=== PATIENT | male | born 1945 | race Caucasian/White ===

== ENCOUNTER 2018-08-11 10:30 | Outpatient (CLI) | payer MEDICARE ==
--- NOTE | 2018-08-11 13:18 | MRI ---
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 Gallstone, S74.2, K80.2. COMPARISON: MRI from 2016. FINDINGS: Multiplanar and multisequence MRI of the abdomen performed prior to and after the intravenous adminis tration of contrast. 3D rendering provided. Background marrow signal of the spine is normal. Multifocal cholelithiasis is present. No evidence of cholecystitis. No intrahepatic or extrahepatic b iliary dilatation. There is mild hepatic steatosis with hepatic fat fraction of 13.4% and hepatic fat percent is 13.8%. The spleen is unremarkable. The adrenal gland are unremarkable. No abnormal enhancing hepatic mass. Portal vein is patent. Hepatic vein are patent. The aortic contour is normal. No aneurysmal dilatation. Right anterior pole renal cyst is present. 1 cm T2 hyperintense nonenhancing mass in the uncinate process of the pancreas is completely unchange d. No connection to the main pancreatic duct. Incidental note is also made of a 4 mm T2 hyperintense focus of the ventral aspect of the pancreatic tail, also unchanged. Prior left nephrectomy. NO abnormal mass in the left nephrectomy bed. IMPRESSION: 1. 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 Per the ACR white paper, a [facility] MRI pancreatic protocol in one year is recommended. Imaging for a total of five years is recommen ded per the ACR criteria. 2. Left nephrectomy changes without abnormal mass in the nephrectomy bed. 3. Mild hepatic steatosis. 4. Right renal cyst. 5. Cholelithiasis without sequela of cystic duct obstruction. POS: [facility]
== END 2018-08-11 10:31 | disposition home or self-care (01) ==
LOC: MRI 10:30
PROVIDERS: ATTEND Internal Medicine Gastroenterology
DX: R13.12 Dysphagia, oropharyngeal phase (principal); D13.6 Benign neoplasm of pancreas; R07.9 Chest pain, unspecified; K21.9 Gastro-esophageal reflux disease without esophagitis; K80.20 Calculus of gallbladder without cholecystitis without obstruction; N28.1 Cyst of kidney, acquired; K76.0 Fatty (change of) liver, not elsewhere classified; Z90.5 Acquired absence of kidney
CPT/HCPCS: 74183; 82565

== ENCOUNTER 2019-09-16 19:16 | Inpatient (IN) | payer MEDICARE ==
[2019-09-16 19:41] LABS: #Basophils 0.1 thou/uL (0.0-0.2); #Eosinphils 0.3 thou/uL (0.0-0.7); #Lymphocytes 2.2 thou/uL (1.20-3.40); #Monocytes 0.7 thou/uL (0.11-0.59); #Neutrophils 5.6 thou/uL (1.40-6.50); %Basophils 0.7 % (0.0-1.0); %Eosinophils 3.6 % (0.0-10.0); %Lymphocytes 25.2 % (21.0-51.0); %Monocytes 7.6 % (0.0-10.0); Hemoglobin 16.1 g/dL (14.0-18.0); Mean Corpuscular HGB CONC 34.5 g/dL (32.0-36.0); Mean Corpuscular Volume 87.1 fL (78.0-98.0); Mean Platelet Volume 7.8 fL (7.4-10.4); Platelet Count 216 thou/uL (130-400); Red Blood Cell (RBC) Count 5.37 mill/uL (4.70-6.10); White Blood Cell (WBC) Count 8.8 thou/uL (4.8-10.8)
[2019-09-16 19:47] LABS: PTT 27.7 SEC (22.9-36.1); Prothrombin Time 12.8 SEC (12.0-14.7)
[2019-09-16 20:05] LABS: ALT (SGPT) 40 U/L (8-55); AST (SGOT) 27 U/L (5-34); Albumin 4.5 g/dL (3.4-4.8); Alkaline Phosphatase 66 U/L (40-110); Anion Gap 15 mmol/L (10-20); BUN (Urea Nitrogen) 14 mg/dL (8.4-25.7); Bilirubin, Total 0.8 mg/dL (0.2-1.2); Calc. Creatinine Clearance 0 mL/min (70-130); Calcium 9.1 mg/dL (7.8-10.44); Carbon Dioxide 26 mmol/L (23-31); Chloride 103 mmol/L (98-107); Estimated GFR-MDRD 58; Globulin 2.7 g/dL (2.4-3.5); Glucose 113 mg/dL (83-110); Potassium 3.8 mmol/L (3.5-5.1); Protein, Total 7.2 g/dL (5.8-8.1); Sodium 140 mmol/L (136-145)
--- NOTE | 2019-09-16 20:10 | CT ---
CT BRAIN NONCONTRAST: DATE: 09/16/2019 HISTORY: 74-year-old male with acute right upper extremity weakness FINDINGS: There is no evidence of acute intra-axial or extra-axial hemorrhage. There is no midline shift or any other mass effect. There is no extra-axial fluid collection. There is no evidence of obstructive hydrocephalus. Calvarium is intact. IMPRESSION: No acute intracranial findings.
[2019-09-16] MEDS ORDERED: Aspirin Chewable 81 MG TAB ONE (20:36)
[2019-09-17] MEDS ORDERED: Insulin Regular 300 UNITS/3 ML VIAL SC PRN (04:22)
[2019-09-17] MEDS ORDERED: Labetalol HCl 100 MG/20 ML VIAL SLOW IVP PRN (04:22)
[2019-09-17] MEDS ORDERED: Enalaprilat Dihydrate 1.25 MG/ML VIAL SLOW IVP PRN (04:22)
[2019-09-17] MEDS ORDERED: hydrALAZINE 20 MG/ML VIAL SLOW IVP PRN (04:22)
--- NOTE | 2019-09-17 04:29 | PDOC.HHP ---
Hospitalist HPI - History of Present Illness R arm weakness History of Present Illness: Patient is a 74 year old male with PMH seizure, L kidney cancer, HLD, HTN who presents to ED for R arm weakness and loss of coordination beginning at 1800 today, patient reports that he is back to normal but on bilateral gate keeper testing is still weaker in R arm. Patient denies facial droop, slurred speech, normal gait, no lower extremity changes, Heparin allergy noted in chart. Hospitalist ROS - Review of Systems Constitutional: denies: fever, chills, sweats, weakness, malaise, other Eyes: denies: pain, vision change, conjunctivae inflammation, eyelid inflammation, redness, other ENT: denies: ear pain, ear discharge, nose pain, nose discharge, nose congestion , mouth pain, mouth swelling, throat pain, throat swelling, other Respiratory: denies: cough, dry, shortness of breath, hemoptysis, SOB with excertion, pleuritic pain, sputum, wheezing, other Cardiovascular: denies: chest pain, palpitations, orthopnea, paroxysmal noc. dyspnea, edema, light headedness, other Gastrointestinal: denies: nausea, vomiting, abdominal pain, diarrhea, constipation, melena, hematochezia, other Genitourinary: denies: dysuria, frequency, incontinence, hematuria, retention, other Musculoskeletal: denies: neck pain, shoulder pain, arm pain, back pain, hand pain, leg pain, foot pain, other Skin: denies: rash, lesions, marlyn, bruising, other Neurological: reports: weakness (R arm). denies: numbness, incoordination, change in speech, confusion, seizures, other All other systems reviewed; all pertinent +/- noted in HPI/Subj Hospitalist History - Past Medical History Other Medical History: seizure, L kidney cancer, HLD, HTN - Past Surgical History Other Surgical History: Surgical history of nephrectomy, on the left. - Family History Family History: reports: no pertinent history - Social History Smoking Status: Never smoker Alcohol: reports: None Drugs: reports: none - Exam General Appearance: NAD, awake alert Eye: PERRL, anicteric sclera ENT: normocephalic atraumatic, no oropharyngeal lesions, moist mucosa Neck: supple, symmetric, no JVD, no thyromegaly, no lymphadenopathy, no carotid bruit Heart: RRR, no murmur, no gallops, no rubs, normal peripheral pulses Respiratory: CTAB, no wheezes, no rales, no ronchi, normal chest expansion, no tachypnea, normal percussion Gastrointestinal: soft, non-tender, non-distended, normal bowel sounds, no palpable masses, no hepatomegaly, no splenomegaly, no bruit Extremities: no cyanosis, no clubbing, no edema Skin: normal turgor, no lesions, no rashes Neurological: cranial nerve grossly intact, normal sensation to touch. negative : facial droop, speech deficit, vision deficit Neurological - other findings: R arm weakness Musculoskeletal: normal tone, no muscle wasting Psychiatric: normal affect, normal behavior, A&O x 3 Hospitalist Results - Labs Result Diagrams: 09/16/19 19:30 09/16/19 19:30 Lab results: WBC 8.8 thou/uL (4.8-10.8) 09/16/19 19:30 Hgb 16.1 g/dL (14.0-18.0) 09/16/19: Hct 46.8 % (42.0-52.0) 09/16/19: MCV 87.1 fL (78.0-98.0) 09/16/19: Plt Count 216 thou/uL (130-400) 09/16/19: Neutrophils % 63.0 % (42.0-75.0) 09/16/19 19:30 Sodium 140 mmol/L (136-145) 09/16/19 19:30 Potassium 3.8 mmol/L (3.5-5.1) 09/16/19 19: Chloride 103 mmol/L (98-107) 09/16/19 19:30 Carbon Dioxide 26 mmol/L (23-31) 09/16/19 19:30 BUN 14 mg/dL (8.4-25.7) 09/16/19 19: Creatinine 1.21 mg/dL (0.7-1.3) 09/16/19 19:30 Glucose 113 mg/dL (83-110) H 09/16/19 19:30 Calcium 9.1 mg/dL (7.8-10.44) 09/16/19: Total Bilirubin 0.8 mg/dL (0.2-1.2) 09/16/19 19:30 AST 27 U/L (5-34) 09/16/19 19:30 ALT 40 U/L (8-55) 09/16/19 19:30 Alkaline Phosphatase 66 U/L (40-110) 09/16/19 19:30 Troponin I Less than 0.010 ng/mL (< 0.028) 09/16/19 19:30 Serum Total Protein 7.2 g/dL (5.8-8.1) 09/16/19 19:30 Albumin 4.5 g/dL (3.4-4.8) 09/16/19 19:30 Additional comment: VITAL SIGNS Sat Sep 16, 2019 19:18 CLAUDETTE Bob Elizabeth Pulse: 66 O2 sat: 93 on (Room Air) Time: 09/16/2019 19:18. VITAL SIGNS Sat Sep 16, 2019 19:21 CLAUDETTE Alvarado Alexanda BP: 177/77 Pulse: 69 Resp: 18 Pain: 0 O2 sat: 95 on (Room Air) Time: 09/16/2019 19:21. VITAL SIGNS Sat Sep 16, 2019 20:32 CLAUDETTE Weir Jt BP: 127/81 Pulse: 64 Resp: 14 Temp: 97.9 (Oral) Pain: 0 O2 sat: 95 on (Room Air) Time: 09/16/2019 20:32. VITAL SIGNS Sat Sep 16, 2019 22:17 CLAUDETTE Weir Jt BP: 151/86 Pulse: 64 Resp: 21 Temp: 98.7 (Oral) Pain: 0 O2 sat: 95 on (Room Air) Time: 09/16/2019 22:17. Fosamax Sat Sep 16, 2019 19:25 CLAUDETTE Alvarado Alexanda TABLET : Strength - 70 mg : ORAL Patient Dose: 70 mg Oral once a day. Aspir-81 Sat Sep 16, 2019 19:25 CLAUDETTE Alvarado Alexanda TABLET, DELAYED RELEASE (ENTERIC COATED) : Strength - 81 mg : ORAL Patient Dose: 81 mg Oral once a day. simvastatin Sat Sep 16, 2019 19:25 CLAUDETTE Alvarado Alexanda TABLET : Strength - 20 mg : ORAL Patient Dose: 20 mg Oral once a day. Norvasc Sat Sep 16, 2019 19:25 CLAUDETTE Alvarado Alexanda TABLET : Strength - 10 mg : ORAL Patient Dose: 10 mg Oral once a day. metoprolol succinate Sat Sep 16, 2019 19:26 CLAUDETTE Alvarado Alexanda tablet extended release 24 hr : Strength - 100 mg : ORAL Patient Dose: 1 tab(s) Oral once a day. azelastine nasal Sat Sep 16, 2019 19:30 CLAUDETTE Alvarado Alexanda aerosol,spray : Strength - 137 mcg (0.1 %) : NASAL Patient Dose: 2 spray(s) Intranasal. clotrimazole-betamethasone Sat Sep 16, 2019 19:30 CLAUDETTE Alvarado Alexanda cream : Strength - 1 %-0.05 % : TOPICAL Patient Dose: 2 times a day. mometasone nasal Sat Sep 16, 2019 19:31 CLAUDETTE Alvarado Alexanda spray,non-aerosol : Strength - 50 mcg/actuation : NASAL Patient Dose: 2 spray(s) Intranasal once a day. omeprazole Sat Sep 16, 2019 19:31 CLAUDETTE Alvarado Alexanda CAPSULE,DELAYED RELEASE (ENTERIC COATED) : Strength - 40 mg : ORAL Patient Dose: 1 cap(s) Oral once a day. hydroCHLOROthiazide Sat Sep 16, 2019 19:32 CLAUDETTE Alvarado Alexanda tablet : Strength - 25 mg : ORAL Patient Dose: 1 tab(s) Oral once a day. 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
[2019-09-17] MEDS: Aspirin 325 mg Enteric Coated Tablet PO SCH (09:08)
--- NOTE | 2019-09-17 11:33 | MRI ---
Brain MRI with and without contrast: 09/17/2019 COMPARISON: 05/07/2014 HISTORY: Transient ischemic attack, right upper extremity weakness, history of malignancy TECHNIQUE: Multiplanar multisequence MR imaging of the brain obtained with and without contrast FINDINGS: The diffusion weighted imaging demonstrates a subcentimeter focus of restricted diffusion o n the basis of acute infarction involving the posterior medial aspect of the left frontal lobe measuring in the 7-8 mm range. No additional focus of acute infarction is noted. Numerous scattered foci of increased T2 and FLAIR signal noted within the periventricular, deep, and subcortical white matter, evidence of small vessel disease. Stable moderate diffuse cerebral volume loss. The axial gradient echo imaging demonstrates no evidence for intracranial hemorrhage. Imaged paranasal sinuses/mastoid air cells are grossly unremarkable. Arterial flow voids at the axial level of the skull base appear unremarkable on the axial T2-weighted imaging. The postcontrast imaging demonstrates no abnormal enhancement within the brain parenchyma. IMPRESSION: Subcentimeter focus of acute infarction within the left frontal lobe. No MR evidence for intracranial metastatic disease.
--- NOTE | 2019-09-17 12:06 | CON ---
DATE OF CONSULTATION: 09/17/2019 CONSULTING PHYSICIAN: Hospitalist Service. IMPRESSION: 1. Lacunar stroke in the left parietal region with improving right upper extremity weakness. 2. Aspirin failure. 3. Hypertension. 4. Distant history of a seizure secondary to hypertensive crisis. PLAN: 1. Add Plavix. 2. Continue aspirin and statin. 3. Carotid ultrasound. 4. Echocardiogram. HISTORY OF PRESENT ILLNESS: Mr. Hart is a 74-year-old gentleman, who presented with acute onset of right-sided weakness involving his arm. He did not have any slurred speech or difficulty walking. There was no associated sensory loss. He denied any headache, nausea, vomiting, vertigo, chest pain, or shortness of breath. He has no past history of similar symptoms. There is a distant history of a hypertensive crisis in a secondary seizure. His last carotid ultrasound was in 2013 and there was no evidence of carotid disease at that point. He reports that degree of weakness has improved significantly. PAST MEDICAL HISTORY: As listed above. ALLERGIES: HEPARIN. SOCIAL HISTORY: No tobacco or alcohol use. FAMILY HISTORY: Noncontributory. REVIEW OF SYSTEMS: Ten-system review of systems is otherwise negative. PHYSICAL EXAMINATION: GENERAL: He is a healthy-appearing gentleman, in no acute distress. VITAL SIGNS: Blood pressure 142/69, pulse 67, respirations 16, and temperature 98. HEENT: Pupils are equal and reactive. Conjunctivae are clear. Oropharynx clear. Cranium, normocephalic and atraumatic. NECK: Supple. No lymphadenopathy. EXTREMITIES: No cyanosis, clubbing, or edema. NEUROLOGIC: He is alert and appropriate. His speech is fluent and clear. Cranial nerves II through XII are intact. Motor exam showed some subtle slowing and rapid movements on the right hand, but otherwise was intact. Sensation was equal to light touch. He can stand and walk independently. There is no tremor or dysmetria present. LABORATORY STUDIES: Included a CBC, coags, and chemistry panel, all of which were unremarkable. His MRI images were reviewed and showed some chronic small-vessel ischemic changes in the white matter bilaterally and an acute area of infarction on the left. SUMMARY: This is a 74-year-old gentleman, who has had a minor stroke, which is improving. He was previously taking aspirin, therefore I would add Plavix. I would be happy to follow up with him in the office. Job ID: [id number]
[2019-09-17] MEDS ORDERED: Magnevist 469MG/ML 20 ML VIAL ONE (16:10)
--- NOTE | 2019-09-17 20:25 | ULT ---
Ultrasound Doppler duplex carotid: DATE: 09/17/2019 HISTORY: 74-year-old male with acute stroke. TECHNIQUE: Grayscale, color-flow, and spectral analysis, of major arteries of neck. FINDINGS: Multifocal predominantly mild calcified atheromatous plaque at the bilateral proximal internal caroti d arteries and carotid bulbs, and origin of left external carotid artery. Highest peak systolic velocities in the internal carotid arteries are: Right internal carotid: 45 cm/s. Left internal carotid: 70 cm/s. ICA/CCA ratios: Right: 0.5 Left: 0.7 Antegrade flow in bilateral vertebral arteries. IMPRESSION: 1. Atherosclerosis of bilateral proximal internal carotid arteries. 2. No evidence of hemodynamically significant stenosis.
[2019-09-17] MEDS ORDERED: Atorvastatin Calcium 40 MG TAB PO SCH (21:00)
[2019-09-18 05:06] LABS: INR-International Normal Ratio 1.1; PTT 28.2 SEC (22.9-36.1); Prothrombin Time 13.7 SEC (12.0-14.7)
[2019-09-18 05:40] LABS: Cardiac Risk 3.3 (Less than 4.5)
[2019-09-18 08:14] VITALS: TEMP 97.7
--- NOTE | 2019-09-18 08:26 | PDOC.HOSPP ---
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 No other residual. Ready to go home. - Objective Vital Signs & Weight: Vital Signs (12 hours) Temp Pulse Resp BP Pulse Ox 09/18/19 08:00 97.7 F 73 16 138/75 96 09/18/19 04:00 97.6 F 73 16 135/74 95 09/18/19 00:00 98 F 68 16 136/73 96 Weight Weight 197 lb 8 oz I&O: 09/17/19 09/18/19 09/19/19 06:59 06:59 06:59 Intake Total 1390 Balance 1390 Result Diagrams: 09/16/19 19:30 09/16/19 19:30 Additional Labs: Accuchecks 09/18/19 09/17/19 09/17/19 05:55 19:43 16:45 POC Glucose 123 H 110 115 H 09/17/19 11:41 POC Glucose 102 Hospitalist ROS - Review of Systems Constitutional: denies: fever, chills Respiratory: denies: cough, dry, shortness of breath Cardiovascular: denies: chest pain, palpitations, orthopnea Gastrointestinal: denies: nausea, vomiting, abdominal pain - Medication Medications: Active Medications Generic Name Dose Route Start Last Admin Trade Name Christianoq PRN Reason Stop Dose Admin Aspirin 325 mg 09/17/19 09:00 09/17/19 09:08 Ecotrin PO 325 mg DAILY HERNANDEZ Administration Atorvastatin Calcium 40 mg 09/17/19 21:00 09/17/19 20:09 Lipitor PO 40 mg HS HERNANDEZ Administration Pantoprazole Sodium 40 mg 09/17/19 09:00 09/17/19 09:08 Protonix PO 40 mg DAILY HERNANDEZ Administration - Exam General Appearance: NAD, awake alert Eye: anicteric sclera ENT: moist mucosa Heart: RRR, no murmur, no gallops, no rubs Respiratory: CTAB, no wheezes, no rales, no ronchi Gastrointestinal: soft, non-tender, non-distended, normal bowel sounds Psychiatric: normal affect, normal behavior, A&O x 3 Hosp A/P (1) Acute ischemic stroke Code(s): I63.9 - CEREBRAL INFARCTION, UNSPECIFIED Status: Acute (2) HTN (hypertension) Code(s): I10 - ESSENTIAL (PRIMARY) HYPERTENSION Status: Chronic (3) HLD (hyperlipidemia) Code(s): E78.5 - HYPERLIPIDEMIA, UNSPECIFIED Status: Chronic (4) Seizure disorder Code(s): G40.909 - EPILEPSY, UNSP, NOT INTRACTABLE, WITHOUT STATUS EPILEPTICUS Status: Chronic - Plan Adding Plavix per neurology recommendations. Will discharge home, f/u with Dr. Finnegan outpatient. Restart BP meds after the next 4 days.
[2019-09-18] MEDS: Aspirin 325 mg Enteric Coated Tablet PO SCH (08:39)
[2019-09-18] MEDS ORDERED: Ascorbic Acid 500 mg Chewable Tablet PO SCH (09:00)
[2019-09-18] MEDS ORDERED: Alendronate Sodium 70 mg Tablet PO SCH (09:00)
[2019-09-18] MEDS ORDERED: Fluticasone Propionate Nasal Spray 16 gm Bottle NASAL SCH (09:00)
[2019-09-18] MEDS ORDERED: Clopidogrel Bisulfate 75 MG TAB PO SCH (09:00)
[2019-09-18 12:14] VITALS: BP 169/88
--- NOTE | 2019-09-18 14:56 | DIS ---
DATE OF ADMISSION: 09/16/2019 DATE OF DISCHARGE: 09/18/2019 PRIMARY CARE PHYSICIAN: Yuval Santo MD REASON FOR ADMISSION: Acute stroke. DIAGNOSES AT DISCHARGE: 1. Acute ischemic stroke. 2. Hypertension. 3. Hyperlipidemia. 4. Seizure disorder. PROCEDURES: 1. CT of the brain without contrast showing no acute intracranial findings. 2. MRI of the brain showing a subcentimeter focus of acute infarction within the left frontal lobe. 3. Carotid Doppler ultrasound showing atherosclerosis of bilateral proximal internal carotid arteries, but no evidence of hemodynamically significant stenosis. 4. Echocardiogram showing no obvious intracranial or intracardiac thrombi, masses, ASD, or PFO. Ejection fraction of 50% to 55%. There was diastolic dysfunction and had a mildly dilated aortic root of 4 cm. CONSULTATIONS: Neurology, Dr. Finnegan. SUMMARY OF HOSPITAL COURSE: This is a 74-year-old white male with a history of seizure disorder, left kidney cancer, hyperlipidemia, and hypertension, who presented to the ED with right arm weakness and loss of coordination. 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 The patient had a CT and MRI as above, was diagnosed with acute stroke. No evidence of metastatic disease to his brain. He was already on aspirin, so he had Plavix added and his simvastatin was switched to a stronger dose of atorvastatin. The patient is doing well on the day of discharge. He was then discharged home. DISCHARGE MANAGEMENT: Discharged home. FOLLOWUP: Follow up with Dr. Finnegan in the next 3 to [address] Santo in the next 5 to 7 days. ACTIVITY: As tolerated. DIET: Healthy heart diet. THERAPY: Outpatient Occupational/Physical therapy. MEDICATIONS: 1. Atorvastatin 40 mg daily, 30 tablets dispensed. 2. Clopidogrel 75 mg daily, 30 tablets dispensed. 3. Aspirin 81 mg daily. 4. Vitamin C 1000 mg daily. 5. Nasonex 50 mcg nasal daily. 6. Omeprazole 40 mg daily. 7. Fosamax 70 mg every week. 8. Amlodipine 10 mg daily. 9. Lotrisone cream apply twice a day. 10. Hydrochlorothiazide one tablet 25 mg daily. 11. Metoprolol succinate 100 mg daily. The patient is to hold off on his blood pressure medications for the next few days. He can restart with a half dose of hydrochlorothiazide as well as his metoprolol starting this weekend. Job ID: [id number]
[2019-09-19] MEDS ORDERED: Enoxaparin Sodium 40 MG/0.4 ML SYRINGE SC SCH (09:00)
== END 2019-09-18 14:14 | disposition home or self-care (01) | DRG 66 ==
LOC: ERS 19:16 → 2SE 22:02
PROVIDERS: ADMIT Internal Medicine; ATTEND Internal Medicine
DX: I63.81 Other cerebral infarction due to occlusion or stenosis of small artery (principal); I10 Essential (primary) hypertension; E78.5 Hyperlipidemia, unspecified; G83.21 Monoplegia of upper limb affecting right dominant side; G40.909 Epilepsy, unspecified, not intractable, without status epilepticus; R29.701 NIHSS score 1; R40.2362 Coma scale, best motor response, obeys commands, at arrival to emergency department; R40.2252 Coma scale, best verbal response, oriented, at arrival to emergency department; R40.2142 Coma scale, eyes open, spontaneous, at arrival to emergency department; Z79.899 Other long term (current) drug therapy; Z85.528 Personal history of other malignant neoplasm of kidney; Z90.5 Acquired absence of kidney; Z79.82 Long term (current) use of aspirin
CPT/HCPCS: 36415; 36416; 70450; 70553; 80053; 80061; 84484; 85025; 85610; 85730; 93005; 93306; 93880; A9579; J1815

== ENCOUNTER 2020-01-25 06:10 | Day surgery (SDC) | payer MEDICARE ==
[2020-01-24 11:17] VITALS: BMI 29.2
[2020-01-25] MEDS ORDERED: Fluorouracil 100 MG, Enoxaparin Sodium 25 MG, EPINEPHrine 0.3 MG in Ophthalmic Irrigati... IRR SCH (06:30)
[2020-01-25] MEDS ORDERED: Cyclopentolate 1% Opth Drop 2 ML BOT FS SCH (06:51)
[2020-01-25] MEDS ORDERED: Phenylephrine 2.5% Ophth Soln 5 ML BOT FS SCH (06:51)
[2020-01-25] MEDS ORDERED: Phenylephrine 2.5% Ophth Soln 5 ML BOT ONE (06:53)
[2020-01-25] MEDS ORDERED: Cyclopentolate 1% Opth Drop 2 ML BOT ONE (06:53)
[2020-01-25] MEDS ORDERED: Midazolam HCl 2 mg/2 ml Vial ONE (09:32)
[2020-01-25] MEDS ORDERED: PROPOFOL 20 ML ONE (09:37)
[2020-01-25] MEDS ORDERED: Fentanyl 100 MCG/2 ML VIAL ONE (09:37)
[2020-01-25] MEDS ORDERED: Lidocaine 1% PF 5 ML VIAL ONE (13:36)
[2020-01-25] MEDS ORDERED: Enoxaparin Sodium 30 MG/0.3 ML SYRINGE ONE (13:36)
[2020-01-25] MEDS ORDERED: Tobramycin/Dexamethasone Ophth Oint 3.5 GM TUBE ONE (13:36)
[2020-01-25] MEDS ORDERED: CEFAZOLIN 1 GM VIAL ONE (13:36)
[2020-01-25] MEDS ORDERED: Indocyanine Green 25 MG/10 ML VIAL ONE (13:36)
[2020-01-25] MEDS ORDERED: Triamcinolone 40 MG/ML VIAL ONE (13:36)
--- NOTE | 2020-01-26 01:14 | OP ---
DATE OF PROCEDURE: 01/25/2020 PREOPERATIVE DIAGNOSIS: Epiretinal membrane, left eye. POSTOPERATIVE DIAGNOSIS: Epiretinal membrane, left eye. PROCEDURES PERFORMED: Pars plana vitrectomy and membrane peel, left eye. ANESTHESIA: Local monitored anesthesia care. DESCRIPTION OF PROCEDURE: The patient was identified in the preop holding area. Appropriate informed consent for the planned surgical procedure on the left eye had been obtained. The patient was transported to the operative suite. Appropriate cardiopulmonary monitoring was established. Local anesthesia was obtained using retrobulbar block. The patient was prepped and draped in usual sterile manner for ophthalmic surgery left eye. Lid speculum was placed in the left eye. A 27-gauge trocar was placed in the conjunctiva and sclera superotemporally, inferotemporally, and supranasal. Infusion line was placed inferotemporally. Light pipe vitreous cutter inserted to the eye. Core vitrectomy was performed. A dense epiretinal membrane was noted along the supratemporal arcade and Indocyanine green dye was infused on the posterior pole x2 identifying various fragments of the epiretinal membrane. These were elevated using membrane scraper and peeled across the macula using end gripping forceps. Indirect ophthalmoscopy was used to exam the retina at 360 degrees. No holes, breaks, or tears were identified. Prophylactic laser was placed behind the sclerotomy sites. Trocars removed. Eye was noted to retain pressure well. Retrobulbar Kenalog subconjunctival Ancef was placed. Antibiotic ointment was placed. The eye was patched and shielded. The patient was taken to the postop recovery unit in good condition, having suffered no immediate perioperative complications. The patient was instructed to keep patch shield on, avoid lifting or bending. Followup appointment with Dr. Figueroa. Job ID: [id number]
== END 2020-01-25 11:35 | disposition home or self-care (01) ==
LOC: SDC 06:10
PROVIDERS: ATTEND Ophthalmology Retina Specialist
PROC: 08T53ZZ Resection of Left Vitreous, Percutaneous Approach (ICD-10-PCS; principal; 2020-01-25)
PROC: 08NF3ZZ Release Left Retina, Percutaneous Approach (ICD-10-PCS; 2020-01-25)
DX: H35.372 Puckering of macula, left eye (principal); I10 Essential (primary) hypertension; Z86.73 Personal history of transient ischemic attack (TIA), and cerebral infarction without residual deficits; Z79.02 Long term (current) use of antithrombotics/antiplatelets; Z79.82 Long term (current) use of aspirin; Z79.83 Long term (current) use of bisphosphonates; Z79.899 Other long term (current) drug therapy; Z88.8 Allergy status to other drugs, medicaments and biological substances; Z90.5 Acquired absence of kidney
CPT/HCPCS: J0171; J1650; J2250; J2704; J3010; J9190